=== PATIENT | male | born 1990 | race Caucasian/White ===

== ENCOUNTER 2018-06-15 20:39 | Emergency (ER) | payer SELFPAY ==
[~2018-06-15] VITALS: Ht 172.7 cm; Wt 81.6 kg
[2018-06-15 22:06] VITALS: BP 131/82
[2018-06-15] MEDS ORDERED: clonazePAM 1 MG TABLET PO ONE (22:30)
[2018-06-15] MEDS ORDERED: clonazePAM 1 MG TABLET ONE (23:06)
--- NOTE | 2018-06-15 23:15 | NUR ---
2200 CAME IN FOR ANXIETY,STABLE,AWAKE,ALERT.NOT IN ANY DISTRESS
--- NOTE | 2018-06-15 23:16 | NUR ---
2311 DISCHARGED TO HOME,AMBULATORY AND STABLE.
== END 2018-06-15 23:35 | disposition home or self-care (01) ==
LOC: ER 20:48
DX: F41.9 Anxiety disorder, unspecified (principal); G62.9 Polyneuropathy, unspecified; R56.9 Unspecified convulsions; F32.9 Major depressive disorder, single episode, unspecified
CPT/HCPCS: 99284; A4606; Z7610